=== PATIENT | male | born 1975 | race Caucasian/White ===

== ENCOUNTER 2019-11-13 09:19 | Emergency (ER) | payer BC, SELFPAY ==
--- NOTE | 2019-11-13 09:26 | ED.EYEPROB ---
HPI - Eye Problem General Chief complaint: Eye Problems Stated complaint: right eye fb Time Seen by Provider: 11/13/19 09:26 Source: patient History of Present Illness HPI Narrative: PATIENT THINKS HE MAY HAVE GOTTEN SOMETHING IN HIS EYE 3 DAYS AGO. Related Data Allergies Allergy/AdvReac Type Severity Reaction Status Date / Time No Known Allergies Allergy Unverified 12/25/16 16:31 Review of Systems Review of Systems: Narrative: CONSTITUTIONAL: Denies fever, chills, or sweats. EYES: Denies visual changes, redness, or discharge. ENT: Denies rhinorrhea, congestion, sore throat, or otalgia. CARDIOVASCULAR: Denies chest pain, palpitations, or edema. RESPIRATORY: Denies cough or dyspnea. GASTROINTESTINAL: Denies abdominal pain, nausea, vomiting, or diarrhea. GENITOURINARY: Denies dysuria or hematuria. SKIN: Denies rash or itching. MUSCULOSKELETAL: Denies back pain, joint pain, or myalgia. NEUROLOGIC: Denies headache, numbness, or weakness. PSYCHIATRIC: Denies anxiety or depression. PMFSH Comments At time of signature, agree with nursing past medical, surgical, social and family history. There is no relevant family history pertinent to the presenting complaint Exam Narrative: Exam Narrative: Method of inspection: Right eye, viewed with fluorescein, viewed with slit lamp, ALCAINE APPLIED, Pupil: Both eyes, 2 mm, equal, reactivity brisk to direct light, Conjunctiva: Right, not with conjunctivitis, not pale, not with subconjunctival hemorrhage, Cornea: Right, abrasion right lower corner of eye, Sclera: Right, clear, Intraocular pressure: Right, 16 mm Hg, Red reflex: Bilaterally, present. GENERAL: Well-appearing, well-nourished, and in no acute distress. HEAD: Normocephalic, atraumatic. EYES: PERRLA and EOMI. ENT: Nares clear, no rhinorrhea or epistaxis. Mucous membranes moist. NECK: Supple. CHEST: Clear to auscultation. No respiratory distress. HEART: Regular rate and rhythm. No murmur heard. Normal peripheral pulses. ABDOMEN: Soft, nontender, nondistended, normal active bowel sounds. EXTREMITIES: Normal range of motion. No edema. SKIN: Warm, dry, no rash. NEURO: No focal deficits. Alert and oriented x3. [place] Coma Scale Eye Opening: Spontaneous 4 [place] Coma Scale Motor: Obeys Commands 6 [place] Coma Scale Verbal: Oriented 5 [place] Coma Scale Total 15 Eyes: Eyes/upper lids images: 1. abrasion Course Vital Signs Vital signs: Vital Signs Temperature 36.4 C 11/13/19 09:30 Pulse Rate 87 11/13/19 09:30 Respiratory Rate 19 11/13/19 09:30 Blood Pressure 144/85 H 11/13/19 09:30 Pulse Oximetry 100 11/13/19 09:30 Temperature 36.4 C 11/13/19 09:30 Pulse Rate 87 11/13/19 09:30 Respiratory Rate 19 11/13/19 09:30 Blood Pressure 144/85 H 11/13/19 09:30 Pulse Oximetry 100 11/13/19 09:30 MDM - Eye Problem Differential Diagnosis Differential diagnosis: Likely corneal abrasion, conjunctivitis, acute iritis and subconjunctival hemorrhage Critical Care Time Critical Care Time Critical Care Time: No Discharge Plan Discharge Clinical Impression: Corneal abrasion Patient Disposition: Home, Self-Care Condition: Stable Instructions: Antibiotic Form, Corneal Abrasion (ED) Additional Instructions: FOLLOW UP WITH FAMILY EYE DOCTOR IN 24-48 HOURS IF ANY NEW OR WORSENING OF CONDITION GO TO ER IMMEDIATELY Cold compresses to the eyes for comfort May need warm compresses to remove debris in the morning When cleaning the eyes used a washcloth in one direction then change washcloths or use a cotton ball in one direction and then his cotton balls Eyedrops as directed--may be more soothing if left in the refrigerator Do not share medicine--do not touch the eye with the medicine Tylenol or ibuprofen for pain Avoid screen time--television, computer, tablet or phone. Also no reading or driving Follow-up with PCP or bench repair technician as directed -If you have any worsening of symptoms or any o
[2019-11-13 09:30] VITALS: BP 144/85; PULSE 87; RESP 19; TEMP 36.4; O2SAT 100
== END 2019-11-13 09:45 | disposition home or self-care (01) ==
PROVIDERS: Emergency Provider Nurse Practitioner Family
DX: S05.01XA Injury of conjunctiva and corneal abrasion without foreign body, right eye, initial encounter (principal); X58.XXXA Exposure to other specified factors, initial encounter
CPT/HCPCS: 99213; A9270; G0463

== ENCOUNTER 2022-03-09 16:13 | Emergency (ER) | payer BC, SELFPAY ==
[2022-03-09 16:20] VITALS: BP 144/98; PULSE 108; RESP 16; TEMP 36.6; O2SAT 100
--- NOTE | 2022-03-09 16:20 | ED.DENTAL ---
HPI - Dental/Oral General Chief complaint: Dental/Oral Stated complaint: Tooth pain Time Seen by Provider: 03/09/22 16:20 History of Present Illness HPI Narrative: NO FEVER. NO JAW SWELLING. NO NECK SWELLING. NO LIMITATION WITH SPEAKING OR SWALLOWING. HAS A HISTORY OF DENTAL CARIES. HAS NOT SEEN A DENTIST RECENTLY. Related Data Allergies Allergy/AdvReac Type Severity Reaction Status Date / Time No Known Allergies Allergy Verified 03/09/22 16:19 Review of Systems Review of Systems: CONSTITUTIONAL: DENIES FEVER, CHILLS, OR SWEATS. EYES: DENIES VISUAL CHANGES, REDNESS, OR DISCHARGE. ENT: DENIES RHINORRHEA, CONGESTION, SORE THROAT, OR OTALGIA. CARDIOVASCULAR: DENIES CHEST PAIN, PALPITATIONS, OR EDEMA. RESPIRATORY: DENIES COUGH OR DYSPNEA. GASTROINTESTINAL: DENIES ABDOMINAL PAIN, NAUSEA, VOMITING, OR DIARRHEA. GENITOURINARY: DENIES DYSURIA OR HEMATURIA. SKIN: DENIES RASH OR ITCHING. MUSCULOSKELETAL: DENIES BACK PAIN, JOINT PAIN, OR MYALGIA. NEUROLOGIC: DENIES HEADACHE, NUMBNESS, OR WEAKNESS. PSYCHIATRIC: DENIES ANXIETY OR DEPRESSION. PMFSH Comments AT TIME OF SIGNATURE, AGREE WITH NURSING PAST MEDICAL, SURGICAL, SOCIAL AND FAMILY HISTORY. THERE IS NO RELEVANT FAMILY HISTORY PERTINENT TO THE PRESENTING COMPLAINT Exam Narrative: GENERAL: WELL-APPEARING, WELL-NOURISHED, AND IN NO ACUTE DISTRESS. HEAD: NORMOCEPHALIC, ATRAUMATIC. EYES: PERRLA AND EOMI. ENT: NARES CLEAR, NO RHINORRHEA OR EPISTAXIS. MUCOUS MEMBRANES MOIST.NO RAFFI APICAL SWELLING, TOOTH TENDER TO PALPATION. NO FACIAL SWELLING. NO TRISMUS. ABLE TO OPEN MOUTH FULLY. NO NECK SWELLING OR GAURI'S ANGINA. NO ABSCESS TO BE DRAINED. no drooling, trismus, facial asymmetry or significant neck swelling NECK: SUPPLE. CHEST: CLEAR TO AUSCULTATION. NO RESPIRATORY DISTRESS. HEART: REGULAR RATE AND RHYTHM. NO MURMUR HEARD. NORMAL PERIPHERAL PULSES. ABDOMEN: SOFT, NONTENDER, NONDISTENDED, NORMAL ACTIVE BOWEL SOUNDS. EXTREMITIES: NORMAL RANGE OF MOTION. NO EDEMA. SKIN: WARM, DRY, NO RASH. NEURO: NO FOCAL DEFICITS. ALERT AND ORIENTED X3. JAMAL COMA SCALE EYE OPENING: SPONTANEOUS 4 JAMAL COMA SCALE MOTOR: OBEYS COMMANDS 6 JAMAL COMA SCALE VERBAL: ORIENTED 5 JAMAL COMA SCALE TOTAL 15 Course Course Level of Care: Express Care Visit Vital Signs Vital signs: Vital Signs Temperature 36.6 C 03/09/22 16:20 Pulse Rate 108 H 03/09/22 16:20 Respiratory Rate 16 03/09/22 16:20 Blood Pressure 144/98 H 03/09/22 16:20 Pulse Oximetry 100 03/09/22 16:20 Oxygen Delivery Room Air 03/09/22 16:20 Temperature 36.6 C 03/09/22 16:20 Pulse Rate 108 H 03/09/22 16:20 Respiratory Rate 16 03/09/22 16:20 Blood Pressure 144/98 H 03/09/22 16:20 Pulse Oximetry 100 03/09/22 16:20 Oxygen Delivery Room Air 03/09/22 16:20 Discharge Plan Discharge Clinical Impression: Toothache, Dental caries, Dental abscess Patient Disposition: Home, Self-Care Condition: Stable Instructions: Antibiotic Form, Dental Abscess (ED) Additional Instructions: AVOID TEMPERATURE EXTREMES MAY APPLY HEAT OR ICE TO THE FACE GENTLE BRUSHING AND FLOSSING ANTIBIOTIC DIRECTED TYLENOL FOR LESSER PAIN USE IBUPROFEN REGULARLY USE THE MEDICATION PROVIDED FOR SEVERE PAIN--CAUTION EACH TABLET CONTAINS 325 MG OF TYLENOL--THE MAXIMUM DOSE OF TYLENOL IS 4000 MG IN 24 HOURS. THIS MEDICATION MAY CAUSE CONSTIPATION CONSIDER STARTING A LAXATIVE AT THIS TIME FOLLOW-UP WITH THE DENTIST SOON POSSIBLE--SEE THE LIST PROVIDED -IF YOU HAVE ANY WORSENING OF SYMPTOMS OR ANY OTHER CONCERNS PLEASE GO TO THE ED IMMEDIATELY. Prescriptions: New amoxicillin 875 mg tablet 875 mg PO Q12H 10 Days Qty: 20 0RF Follow-up/Referrals: Dinh Hartman MD [Primary Care Provider] - Stand Alone Forms: Work/School Release IP
== END 2022-03-09 16:29 | disposition home or self-care (01) ==
PROVIDERS: Emergency Provider Nurse Practitioner Family; PCP Family Medicine
DX: K02.9 Dental caries, unspecified (principal); K04.7 Periapical abscess without sinus
CPT/HCPCS: 99213; G0463